=== PATIENT | female | born 1985 | race Caucasian/White ===

== ENCOUNTER → 2016-12-09 | Outpatient (CLI) | payer MEDICAID ==
[~2016-12-09] MED LIST: BENADRYL 25MG C25 MG PO; LABETALOL 100M100 MG FT; LABETALOL 100M100 MG PO; MOTRIN 400MG.400 MG PO; NASONEX0.05 MG/AC; NIFEDIPINE XL 330 MG PO; PERCOCET 5/3251 EACH PO; PRENATAL PLUS1 TA1 PO; PRENATAL1 TA5 PO; PROCARDIA PO; SUDAFED 12 HOU120 MG PO; TYLENOL ES500 M1 PO; ZYRTEC 10MG TAB10 MG PO
[2016-12-13 12:36] LABS: Neisseria gonorrhoeae, NAA Negative (Negative)
== END ==
LOC: LAB 16:36
PROVIDERS: Nurse Practitioner Obstetrics & Gynecology
DX: R10.2 Pelvic and perineal pain (principal)